=== PATIENT | female | born 1995 | race Hispanic/Latino ===

== ENCOUNTER 2025-02-18 13:44 | Emergency (ER) | payer OTHER ==
[2025-02-18 14:12] LABS: BASO # 0.1 10^3/uL (0.0-0.2); BASO % 0.6 % (0.0-1.0); EOS # 0.9 10^3/uL (0.0-0.5); EOS % 8.6 % (0.0-3.0); LYMPH # 4.0 10^3/uL (1.5-5.0); LYMPH % 36.8 % (24.0-44.0); MONO # 0.4 10^3/uL (0.0-0.8); MONO % 4.0 % (2.0-8.0); NEUTROPHILS # 5.4 10^3/uL (1.5-8.5); NEUTROPHILS % 49.7 % (36.0-66.0); PLATELET COUNT, AUTOMATED 295 10^3/uL (150-450)
[2025-02-18] MEDS: IPRATROPIUM 0.5 MG/ALBUTEROL 2.5 MG INH SOL UD 3 ML NEB PRN (14:16)
[2025-02-18 14:25] VITALS: TEMP 98.4
[2025-02-18 14:44] LABS: CALCIUM LEVEL 8.2 MG/DL (8.5-10.1); CARBON DIOXIDE LEVEL 26 MMOL/L (20-31); CHLORIDE LEVEL 105 MMOL/L (98-107); CK-MB VALUE MASS 1.9 NG/ML (<3.6); CPK CREATINE PHOSPHOKINASE 174 U/L (34-145); CREATININE FOR GFR 0.66 MG/DL (0.55-1.30); GLOMERULAR FILTRATION RATE > 90.0 (>60); HCG, SERUM QUALITATIVE NEGATIVE (NEGATIVE); MB/CK RELATIVE INDEX 1.09 (< OR =4); POTASSIUM SERUM 4.1 MMOL/L (3.5-5.1); SODIUM LEVEL 142 MMOL/L (136-145)
[2025-02-18 15:29] VITALS: BP 114/62; O2SAT 95
[2025-02-18 15:58] LABS: CK-MB VALUE MASS 1.8 NG/ML (<3.6)
[2025-02-18 16:00] LABS: CPK CREATINE PHOSPHOKINASE 152.0 U/L (34-145); MB/CK RELATIVE INDEX 1.18 (< OR =4)
[2025-02-18] MEDS ORDERED: VENTAER INH (16:26)
[2025-02-18 16:36] VITALS: O2SAT 96
== END 2025-02-18 16:46 | disposition home or self-care (01) ==
LOC: M ED 13:44
DX: J45.901 Unspecified asthma with (acute) exacerbation (principal); R00.0 Tachycardia, unspecified; Z79.52 Long term (current) use of systemic steroids
CPT/HCPCS: 71045; 80048; 82550; 82553; 84484; 84703; 85025; 87486; 87581; 87633; 87798; 93005; 93041; 94640; 94760; 96374; 99285; J2919